=== PATIENT | male | born 1980 | race American Indian/Alaskan Native ===

== ENCOUNTER 2017-02-26 12:47 | Emergency (ER) | payer BC ==
[2017-02-26 13:43] VITALS: BP 135/66
--- NOTE | 2017-02-26 15:46 | Emergency Department Report ---
ED Lower Extremity HPI - General Chief Complaint: Extremity Injury, Lower Stated Complaint: TORN ACL Source: patient Mode of arrival: Ambulatory Limitations: No Limitations - History of Present Illness Initial Comments: 36-year-old -Portuguese male comes in today for complaint that he feels he has torn his anterior cruciate ligament. He was tussling on and injured his right knee. Patient reports he had did not take any pain medication until last night he took a hydrocodone from his girlfriend. Patient reports that he is not able to been. He is able to put a little weight on it. He complains that the pain is mostly in the medial portion of his knee. He admits to swelling. He reports that he felt something pop. He has no other known past medical history no known drug allergies. -: Sudden (on ) Injury: Knee: Right Type of Injury: hyperflexion Place: home Severity: severe Severity scale (0 -10): 10 Improves With: nothing Worsens With: movement Context: fall Associated Symptoms: snap/pop sensation, swelling - Related Data Previous Rx's Medication Instructions Recorded Last Taken Type Naproxen Sodium [Aleve] 220 mg PO Q8H PRN #50 tablet 06/25/14 Unknown Rx Ibuprofen [Motrin 600 MG tab] 600 mg PO BID PRN #15 tablet 02/26/17 Unknown Rx Allergies Allergy/AdvReac Type Severity Reaction Status Date / Time No Known Allergies Allergy Unverified 06/25/14 12:34 ED Review of Systems ROS: Stated complaint: TORN ACL Other details as noted in HPI Comment: All other systems reviewed and negative Constitutional: denies: chills, fever Musculoskeletal: joint swelling (right knee pain), arthralgia (right knee) ED Past Medical Hx - Past Medical History Hx Hypertension: No Hx CVA: No Hx Heart Attack/AMI: No - Social History Smoking Status: Current Some Day Smoker Substance Use Type: Alcohol - Medications Home Medications: Home Medications Medication Instructions Recorded Confirmed Last Taken Type Naproxen Sodium [Aleve] 220 mg PO Q8H PRN #50 tablet 06/25/14 Unknown Rx Ibuprofen [Motrin 600 MG tab] 600 mg PO BID PRN #15 tablet 02/26/17 Unknown Rx ED Physical Exam - General Limitations: No Limitations - Eye Eye exam: Present: normal appearance - Extremities Exam Extremities exam: Present: normal inspection, full ROM (with pain), tenderness ( right medial tenderness and swelling), normal capillary refill, joint swelling. Absent: pedal edema, calf tenderness - Skin Skin exam: Present: warm, dry, intact ED Course Vital Signs 02/26/17 13:41 Temperature 98.5 F Pulse Rate 57 L Respiratory 18 Rate Blood Pressure 135/66 O2 Sat by Pulse 100 Oximetry ED Lower Extremity MDM - Medical Decision Making Patient has been evaluated by this provider in fast track. I discussed with patient will do a plain film. I told him the best film will be a MRI if her concern for any ligamentous tears. Discussed the patient I'll give him pain medication now. Discussed the patient he would need to follow-up with the orthopedic provider for further evaluation and further studies. Patient verbalized understanding. Critical care attestation.: If time is entered above; I have spent that time in minutes in the direct care of this critically ill patient, excluding procedure time. ED Disposition Clinical Impression: Right medial knee pain Disposition: [id number] TO HOME OR SELFCARE Is pt being admited?: No Does the pt Need Aspirin: No Condition: Stable Additional Instructions: X-ray was negative for any fractures. I recommended for follow-up with orthopedics. Wear brace as much as possible ice knee for 20 minutes every hour. Elevate leg to take down the swelling. He may take ibuprofen or naproxen for pain management. Please eat prior to taking medications. Prescriptions: Ibuprofen [Motrin 600 MG tab] 600 mg PO BID PRN #15 tablet PRN Reason: Pain Referrals: PRIMARY CAREMD [Primary Care Provider] - 3-5 Days FRANKY BARON MD [Staff Physician] - 3-5 Days Forms: Work/School Release Form(ED)
[2017-02-26] MEDS ORDERED: MOTRIN PO ONE (15:49)
--- NOTE | 2017-02-26 16:13 | XRay Report ---
FINAL REPORT EXAM: XR KNEE 3V RT HISTORY: right knee pain s/p fall TECHNIQUE: AP, oblique, and lateral views of the right knee PRIORS: None. FINDINGS: No acute fracture or dislocation is seen. The soft tissues are unremarkable with no evidence for suprapatellar joint effusion. Joint spaces are maintained and bony mineralization is normal. IMPRESSION: Negative views of the right knee.
== END 2017-02-26 17:37 | disposition home or self-care (01) ==
LOC: ED 12:47
DX: M25.561 Pain in right knee (principal); F17.200 Nicotine dependence, unspecified, uncomplicated
CPT/HCPCS: 99283